=== PATIENT | female | born 1960 | race Caucasian/White ===

== ENCOUNTER → 2016-04-21 | Day surgery (SDC) | payer OTHER | END | disposition home or self-care (01) | LOC: FAS 08:35 | DX: K22.0 Achalasia of cardia (principal); K21.9 Gastro-esophageal reflux disease without esophagitis; F32.9 Major depressive disorder, single episode, unspecified; Z90.49 Acquired absence of other specified parts of digestive tract; Z90.710 Acquired absence of both cervix and uterus; Z90.89 Acquired absence of other organs; Z87.891 Personal history of nicotine dependence | CPT/HCPCS: J0585 ==